=== PATIENT | female | born 1960 | race Caucasian/White ===

== ENCOUNTER → 2018-10-28 | Outpatient (CLI) | payer BC, OTHER ==
[2018-10-28 10:57] LABS: HEMATOCRIT 42.3 % (36.0-47.0); HEMOGLOBIN 13.9 g/dl (12.0-15.5); MEAN CORPUSCULAR HEMOGLOBIN 30.5 pg (27.0-33.0); MEAN CORPUSCULAR HGB CONC 32.9 g/dl (32.0-36.5); PLATELET COUNT, AUTOMATED 260 10^3/uL (150-450); RED BLOOD COUNT 4.55 10^6/uL (4.00-5.40); WHITE BLOOD COUNT 7.1 10^3/uL (4.0-10.0)
[2018-10-28 11:14] LABS: HEMOGLOBIN A1c 5.6 %
[2018-10-28 11:37] LABS: ALBUMIN 3.6 GM/DL (3.2-5.2); ALT/SGPT 67 U/L (12-78); BILIRUBIN,TOTAL 0.3 MG/DL (0.2-1.0); BLOOD UREA NITROGEN 21 MG/DL (7-18); CALCIUM LEVEL 9.8 MG/DL (8.5-10.1); CARBON DIOXIDE LEVEL 30 MEQ/L (21-32); CHLORIDE LEVEL 105 MEQ/L (98-107); CHOLESTEROL LEVEL 166 MG/DL (<200); CHOLESTEROL RISK RATIO 3.132 (<5); CREATININE FOR GFR 0.83 MG/DL (0.55-1.30); GLOMERULAR FILTRATION RATE > 60.0 (>51); GLUCOSE, FASTING 99 MG/DL (70-100); HDL CHOLESTEROL 53 MG/DL (>40); LDL CHOLESTEROL 95 MG/DL (<100); NON-HDL-C 113 MG/DL; SODIUM LEVEL 141 MEQ/L (136-145); TOTAL PROTEIN 7.1 GM/DL (6.4-8.2); TRIGLYCERIDES LEVEL 91 MG/DL (<150)
[2018-10-28 11:39] LABS: ESTRADIOL < 19.0 PG/ML; LUTEINIZING HORMONE 38.9 mIU/mL; TOTAL T3 92.7 NG/DL (60.0-181.0)
[2018-10-28 11:40] LABS: FOLLICLE STIMULATING HORMONE 67.6 mIU/mL
--- NOTE | 2018-10-28 13:06 | REP ---
Chest x-ray: Two views. History: Hypertension. . Comparison study: July 17, 2011 . Findings: The lungs are well inflated and free of infiltrate. The pleural angles are sharp. The heart size is normal. Pulmonary vasculature is not increased. No significant bony abnormality is seen. Impression: Negative chest x-ray. Electronically Signed by Jayy Rasheed MD 10/28/2018 12:57 P
--- NOTE | 2018-10-28 17:17 | ECGEPIP ---
[facility] Test Date: 2018-10-28 Pat Name: SHAWN FERNANDES Department: Room: - Gender: Female Warp Drawer: LARRY : 1960 Requested By: Sirdevi Harris Order Number: [id number] Reading MD: Darell Hobbs Measurements Intervals [place] Rate: 69 P: 20 [place]: 207 QRS: QRSD: 107 T: QT: 388 QTc: 418 Interpretive Statements Normal sinus rhythm Nonspecific ST-T wave abnormalities Comparison tracing not on file Electronically Signed on 10-28-2018 17:17:30 EDT by Darell Hobbs
== END ==
LOC: M LAB 10:20
PROVIDERS: ATTEND Family Medicine
DX: I10 Essential (primary) hypertension (principal); E03.9 Hypothyroidism, unspecified

== ENCOUNTER → 2020-11-08 | Outpatient (CLI) | payer BC, OTHER ==
[2020-11-08 11:30] LABS: HEMATOCRIT 42.2 % (36.0-47.0); HEMOGLOBIN 13.8 g/dl (12.0-15.5); MEAN CORPUSCULAR HEMOGLOBIN 30.3 pg (27.0-33.0); MEAN CORPUSCULAR HGB CONC 32.7 g/dl (32.0-36.5); MEAN CORPUSCULAR VOLUME 92.5 fl (80.0-96.0); PLATELET COUNT, AUTOMATED 243 10^3/uL (150-450); RED BLOOD COUNT 4.56 10^6/uL (4.00-5.40); WHITE BLOOD COUNT 6.4 10^3/uL (4.0-10.0)
[2020-11-08 12:16] LABS: ALT/SGPT 69 U/L (12-78); BILIRUBIN,TOTAL 0.5 MG/DL (0.2-1.0); BLOOD UREA NITROGEN 25 MG/DL (7-18); CALCIUM LEVEL 9.8 MG/DL (8.8-10.2); CARBON DIOXIDE LEVEL 29 MEQ/L (21-32); CHLORIDE LEVEL 106 MEQ/L (98-107); CREATININE FOR GFR 0.93 MG/DL (0.55-1.30); GLOMERULAR FILTRATION RATE > 60.0 (>45); GLUCOSE, FASTING 93 MG/DL (70-100); POTASSIUM SERUM 3.5 MEQ/L (3.5-5.1); SODIUM LEVEL 141 MEQ/L (136-145); TRIGLYCERIDES LEVEL 147 MG/DL (<150)
[2020-11-08 12:17] LABS: CHOLESTEROL LEVEL 183 MG/DL (<200); CHOLESTEROL RISK RATIO 3.327 (<5); HDL CHOLESTEROL 55 MG/DL (>40); LDL CHOLESTEROL 99 MG/DL (<100); NON-HDL-C 128 MG/DL; RHEUMATOID FACTOR QUANT < 10.0 IU/ML (<15.0); TOTAL 25(OH) VITAMIN D 45.5 NG/ML (30.0-100.0); TOTAL PROTEIN 7.4 GM/DL (6.4-8.2); URIC ACID 7.2 MG/DL (2.6-6.0)
[2020-11-08 12:20] LABS: HEMOGLOBIN A1c 5.6 %
== END ==
LOC: M LAB 10:38
PROVIDERS: ATTEND Family Medicine
DX: I10 Essential (primary) hypertension (principal)

== ENCOUNTER → 2021-02-13 | Outpatient (CLI) | payer BC, OTHER | LOC: M LABSMTC 10:58 | PROVIDERS: ATTEND Pediatrics | DX: Z20.822 Contact with and (suspected) exposure to COVID-19 (principal) | CPT/HCPCS: C9803; U0003 ==

== ENCOUNTER → 2022-11-12 | Outpatient (CLI) | payer BC, OTHER ==
[2022-11-12 09:52] LABS: HEMATOCRIT 42.6 % (36.0-47.0); HEMOGLOBIN 14.3 g/dl (12.0-15.5); MEAN CORPUSCULAR HEMOGLOBIN 30.5 pg (27.0-33.0); MEAN CORPUSCULAR HGB CONC 33.6 g/dl (32.0-36.5); MEAN CORPUSCULAR VOLUME 90.8 fl (80.0-96.0); PLATELET COUNT, AUTOMATED 262 10^3/uL (150-450); RED BLOOD COUNT 4.69 10^6/uL (4.00-5.40)
[2022-11-12 10:05] LABS: HEMOGLOBIN A1c 5.5 % (4.0-6.0)
[2022-11-12 10:18] LABS: URIC ACID 7.8 MG/DL (3.1-7.8)
[2022-11-12 10:22] LABS: ALBUMIN 4.2 G/DL (3.2-5.2); ALKALINE PHOSPHATASE 104 U/L (46-116); ALT/SGPT 46 U/L (7.0-40); AST/SGOT 28 U/L (<34); BILIRUBIN,TOTAL 0.7 MG/DL (0.3-1.2); BLOOD UREA NITROGEN 19 MG/DL (9-23); CALCIUM LEVEL 10.5 MG/DL (8.3-10.6); CARBON DIOXIDE LEVEL 28 MMOL/L (20-31); CHLORIDE LEVEL 101 MMOL/L (98-107); CHOLESTEROL LEVEL 149 MG/DL (<200); CHOLESTEROL RISK RATIO 3.22 (<5); CREATININE FOR GFR 0.97 MG/DL (0.55-1.30); GLOMERULAR FILTRATION RATE > 60.0 (>45); GLUCOSE, FASTING 102 MG/DL (74-106); HDL CHOLESTEROL 46.2 MG/DL (>40); NON-HDL-C 102.8 MG/DL; POTASSIUM SERUM 3.6 MMOL/L (3.5-5.1); SODIUM LEVEL 137 MMOL/L (136-145); TRIGLYCERIDES LEVEL 99 MG/DL (<150)
[2022-11-12 10:33] LABS: TOTAL 25(OH) VITAMIN D 65.5 NG/ML (20.0-100.0)
[2022-11-12 10:34] LABS: ESTRADIOL 23.5 PG/ML
[2022-11-12 10:35] LABS: FOLLICLE STIMULATING HORMONE 75.2 mIU/ML; LUTEINIZING HORMONE 38.3 mIU/ML; THYROID STIMULATING HORMONE 2.126 uIU/ML (0.55-4.78)
== END ==
LOC: M LAB 08:10
PROVIDERS: ATTEND Family Medicine
DX: R94.6 Abnormal results of thyroid function studies (principal)

== ENCOUNTER → 2023-06-25 | Outpatient (CLI) | payer BC, OTHER ==
[2023-06-25 10:44] LABS: HEMOGLOBIN 14.1 g/dl (12.0-15.5); MEAN CORPUSCULAR HEMOGLOBIN 30.9 pg (27.0-33.0); MEAN CORPUSCULAR HGB CONC 32.8 g/dl (32.0-36.5); MEAN CORPUSCULAR VOLUME 94.1 fl (80.0-96.0); PLATELET COUNT, AUTOMATED 248 10^3/uL (150-450); RED BLOOD COUNT 4.57 10^6/uL (4.00-5.40); WHITE BLOOD COUNT 5.8 10^3/uL (4.0-10.0)
[2023-06-25 10:54] LABS: INR 0.98; PROTHROMBIN TIME 12.7 SECONDS (12.5-14.5)
[2023-06-25 11:13] LABS: HEMOGLOBIN A1c 5.3 % (4.0-6.0); TOTAL 25(OH) VITAMIN D 46.3 NG/ML (20.0-100.0)
[2023-06-25 11:14] LABS: FOLLICLE STIMULATING HORMONE 52.9 mIU/ML; THYROID STIMULATING HORMONE 0.788 uIU/ML (0.55-4.78)
[2023-06-25 11:17] LABS: IRON (FE) 79 UG/DL (50-170); PERCENT SATURATION 24.2 % (13.2-45.0); TOTAL IRON BINDING CAPACITY 327 UG/DL (250-425)
[2023-06-25 11:18] LABS: ALBUMIN 3.9 G/DL (3.2-5.2); ALKALINE PHOSPHATASE 105 U/L (46-116); ALT/SGPT 38 U/L (7.0-40); AST/SGOT 24 U/L (<34); BILIRUBIN,TOTAL 0.6 MG/DL (0.3-1.2); BLOOD UREA NITROGEN 20 MG/DL (9-23); CALCIUM LEVEL 9.9 MG/DL (8.3-10.6); CARBON DIOXIDE LEVEL 30 MMOL/L (20-31); CHLORIDE LEVEL 102 MMOL/L (98-107); CHOLESTEROL LEVEL 185 MG/DL (<200); CHOLESTEROL RISK RATIO 3.67 (<5); CREATININE FOR GFR 0.89 MG/DL (0.55-1.30); ESTRADIOL < 19.0 PG/ML; GLOMERULAR FILTRATION RATE > 60.0 (>45); GLUCOSE, FASTING 99 MG/DL (74-106); HDL CHOLESTEROL 50.3 MG/DL (>40); LDL CHOLESTEROL 115.1 MG/DL (<100); NON-HDL-C 134.7 MG/DL; POTASSIUM SERUM 3.9 MMOL/L (3.5-5.1); SODIUM LEVEL 138 MMOL/L (136-145); TRIGLYCERIDES LEVEL 98 MG/DL (<150)
== END ==
LOC: M LAB 09:37
PROVIDERS: ATTEND Family Medicine
DX: D64.9 Anemia, unspecified (principal); E03.9 Hypothyroidism, unspecified; R53.83 Other fatigue

== ENCOUNTER → 2023-07-03 | Outpatient (CLI) | payer BC, OTHER | LOC: M RAD 14:27 | PROVIDERS: ATTEND Obstetrics & Gynecology | DX: N95.0 Postmenopausal bleeding (principal) ==

== ENCOUNTER → 2023-07-17 | Outpatient (CLI) | payer BC ==
[2023-07-17 13:06] LABS: ESTRADIOL 19.8 PG/ML; FREE T4 1.28 NG/DL (0.89-1.76)
[2023-07-18 19:11] LABS: TESTOSTERONE FREE (DIRECT) 1.6 pg/mL (0.0-4.2)
== END ==
LOC: M LAB 11:41
PROVIDERS: ATTEND Obstetrics & Gynecology
DX: N95.0 Postmenopausal bleeding (principal)

== ENCOUNTER → 2024-03-15 | Outpatient (CLI) | payer BC ==
[2024-03-15 10:18] LABS: HEMATOCRIT 42.6 % (36.0-47.0); HEMOGLOBIN 14.5 g/dl (12.0-15.5); MEAN CORPUSCULAR HEMOGLOBIN 31.2 pg (27.0-33.0); MEAN CORPUSCULAR VOLUME 91.6 fl (80.0-96.0); PLATELET COUNT, AUTOMATED 246 10^3/uL (150-450); RED BLOOD COUNT 4.65 10^6/uL (4.00-5.40); WHITE BLOOD COUNT 5.8 10^3/uL (4.0-10.0)
[2024-03-15 10:33] LABS: ALKALINE PHOSPHATASE 121 U/L (35-104); ALT/SGPT 70 U/L (7.0-40); AST/SGOT 46 U/L (<34); BILIRUBIN,TOTAL 0.9 MG/DL (0.3-1.2); BLOOD UREA NITROGEN 20 MG/DL (9-23); CARBON DIOXIDE LEVEL 27 MMOL/L (20-31); CHLORIDE LEVEL 102 MMOL/L (98-107); CHOLESTEROL LEVEL 223 MG/DL (<200); CHOLESTEROL RISK RATIO 3.91 (<5); CREATININE FOR GFR 0.93 MG/DL (0.55-1.30); GLOMERULAR FILTRATION RATE > 60.0 (>45); GLUCOSE, FASTING 98 MG/DL (74-106); LDL CHOLESTEROL 136.4 MG/DL (<100); MAGNESIUM LEVEL 2.1 MG/DL (1.8-2.4); POTASSIUM SERUM 3.9 MMOL/L (3.5-5.1); SODIUM LEVEL 136 MMOL/L (136-145); TOTAL PROTEIN 7.7 G/DL (5.7-8.2); TRIGLYCERIDES LEVEL 148 MG/DL (<150)
[2024-03-15 10:34] LABS: THYROID STIMULATING HORMONE 0.768 uIU/ML (0.55-4.78)
[2024-03-15 10:35] LABS: HEMOGLOBIN A1c 5.5 % (4.0-6.0); TOTAL 25(OH) VITAMIN D 42.5 NG/ML (20.0-100.0)
== END ==
LOC: M LAB 09:01
PROVIDERS: ATTEND Family Medicine
DX: I10 Essential (primary) hypertension (principal); R53.83 Other fatigue; E03.9 Hypothyroidism, unspecified

== ENCOUNTER 2024-09-22 15:47 | Emergency (ER) | payer BC ==
[~2024-09-22] VITALS: Ht 175.3 cm; Wt 120.1 kg
[2024-09-22 15:56] VITALS: BP 152/94; TEMP 99.2; O2SAT 99
[2024-09-22] MEDS ORDERED: ALLO100T (16:01)
[2024-09-22] MEDS ORDERED: TRIA37.5 (16:01)
[2024-09-22] MEDS ORDERED: MELO7.5T35 (16:01)
[2024-09-22] MEDS ORDERED: OMEP-173 (16:01)
[2024-09-22] MEDS ORDERED: LEVO112T2 (16:01)
== END 2024-09-22 17:21 | disposition left against medical advice (07) ==
LOC: M ED 15:47
DX: Z53.21 Procedure and treatment not carried out due to patient leaving prior to being seen by health care provider (principal)

== ENCOUNTER → 2025-02-07 | Outpatient (REF) | payer BC ==
[~2025-02-07] MED LIST: ALLO100T; LEVO112T2; MELO7.5T35; OMEP-173; TRIA37.5
[2025-02-09 14:58] LABS: ANA PATTERN 2 Nuclear, Speckled; ANA TITER 2 1:160 titer (NEGATIVE)
[2025-02-10 19:48] LABS: LYME TOTAL ANTIBODY CIA <= 0.90 Index (<=0.90)
== END ==
LOC: M LAB REF 12:05
PROVIDERS: ATTEND Internal Medicine
DX: N39.0 Urinary tract infection, site not specified (principal); M25.50 Pain in unspecified joint

== ENCOUNTER → 2025-02-14 | Outpatient (REF) | payer BC | LOC: M LAB REF 12:16 | PROVIDERS: ATTEND Internal Medicine | DX: E03.9 Hypothyroidism, unspecified (principal) ==